=== PATIENT | male | born 1965 | race Caucasian/White ===

== ENCOUNTER 2024-04-29 01:54 | Emergency (ER) | payer OTHER ==
[~2024-04-29 01:54] MED LIST: AMLO10TA80 PO; ASPI-1160 PO; LIP40 PO; ROSU40TA MT
== END 2024-04-29 03:31 | disposition left against medical advice (07) ==
LOC: ER 01:54
DX: R53.1 Weakness (principal); Z53.21 Procedure and treatment not carried out due to patient leaving prior to being seen by health care provider

== ENCOUNTER 2024-09-11 13:02 | Emergency (ER) | payer OTHER ==
[~2024-09-11] VITALS: Ht 167.6 cm; Wt 75.0 kg
[2024-09-11 13:08] VITALS: O2SAT 99
[2024-09-11 13:11] VITALS: BP 138/75; PULSE 72; RESP 18; TEMP 36.9; O2SAT 100
[2024-09-11] MEDS ORDERED: CEPH500C2 MT (14:29)
== END 2024-09-11 15:06 | disposition home or self-care (01) ==
LOC: ER 13:02
DX: L02.412 Cutaneous abscess of left axilla (principal); E78.00 Pure hypercholesterolemia, unspecified; I10 Essential (primary) hypertension; Z79.82 Long term (current) use of aspirin; Z79.899 Other long term (current) drug therapy
CPT/HCPCS: 99283

== ENCOUNTER 2025-01-14 12:56 | Emergency (ER) | payer OTHER ==
[~2025-01-14] VITALS: Ht 167.6 cm; Wt 77.1 kg
[~2025-01-14 12:56] MED LIST changes: +CEPH500C2 MT
[2025-01-14 13:01] VITALS: O2SAT 98
[2025-01-14 13:06] VITALS: BP 164/84; PULSE 76; RESP 16; O2SAT 99
[2025-01-14 13:45] LABS: BASOPHILS % 0.6 % (0.0-2.0); EOSINOPHILS % 3.5 % (0.0-5.0); HEMATOCRIT. 38.4 % (42.0-52.0); HEMOGLOBIN. 13.2 g/dL (14.0-18.0); LYMPHOCYTES % 25.4 % (20.0-50.0); MEAN PLATELET VOLUME 8.9 fl (7.4-10.4); MONOCYTES % 7.9 % (2.0-8.0); NEUTROPHILS % 62.6 % (40.0-76.0); PLATELET 243 x1000/uL (130-400); RED BLOOD CELL COUNT 4.08 mill/uL (4.7-6.1); RED CELL DISTRIBUTION WIDTH 12.6 % (11.6-14.6)
[2025-01-14 13:56] LABS: CREATININE 1.0 mg/dL (0.6-1.3); UREA NITROGEN BLOOD 14 mg/dL (9-23)
[2025-01-14 13:57] LABS: TROPONIN I HIGH SENSITIVITY 24 ng/L (3.0-53)
== END 2025-01-14 14:45 | disposition left against medical advice (07) ==
LOC: ER 12:56
DX: R20.0 Anesthesia of skin (principal); R20.2 Paresthesia of skin; Z53.21 Procedure and treatment not carried out due to patient leaving prior to being seen by health care provider
CPT/HCPCS: 36415; 80048; 84484; 85025; 93005

== ENCOUNTER 2025-03-26 13:53 | Emergency (ER) | payer OTHER ==
[~2025-03-26] VITALS: Ht 167.6 cm; Wt 80.0 kg
[2025-03-26 13:56] VITALS: O2SAT 100
[2025-03-26 14:06] VITALS: BP 147/78; PULSE 72; RESP 16; TEMP 36.7; O2SAT 98
[2025-04-05] MEDS ORDERED: CLOP-31 MT (12:31)
[2025-04-05] MEDS ORDERED: ASPI-1406 MT (12:31)
== END 2025-03-26 16:56 | disposition left against medical advice (07) ==
LOC: ER 13:53
DX: R07.9 Chest pain, unspecified (principal); I10 Essential (primary) hypertension; Z53.21 Procedure and treatment not carried out due to patient leaving prior to being seen by health care provider
CPT/HCPCS: 96375; 99281

== ENCOUNTER 2025-04-02 19:44 | Inpatient (IN) | payer OTHER ==
[~2025-04-02] VITALS: Ht 167.6 cm; Wt 78.9 kg
[2025-04-02 19:48] VITALS: O2SAT 100
[2025-04-02 20:53] LABS: BASOPHILS % 0.8 % (0.0-2.0); EOSINOPHILS % 5.4 % (0.0-5.0); HEMATOCRIT. 38.7 % (42.0-52.0); HEMOGLOBIN. 13.4 g/dL (14.0-18.0); LYMPHOCYTES % 33.2 % (20.0-50.0); MEAN PLATELET VOLUME 8.9 fl (7.4-10.4); MONOCYTES % 8.9 % (2.0-8.0); NEUTROPHILS % 51.7 % (40.0-76.0); PLATELET 239 x1000/uL (130-400); RED BLOOD CELL COUNT 4.13 mill/uL (4.7-6.1); RED CELL DISTRIBUTION WIDTH 12.7 % (11.6-14.6)
[2025-04-02 20:59] LABS: CREATININE 0.9 mg/dL (0.6-1.3); UREA NITROGEN BLOOD 12 mg/dL (9-23)
[2025-04-02 21:01] LABS: TROPONIN I HIGH SENSITIVITY 8 ng/L (3.0-53)
[2025-04-02] MEDS: ASPIRIN 325MG EC TABLET PO ONE (22:13)
[2025-04-02] MEDS: ONDANSETRON HCL 4MG/2ML INJ IV ONE (22:15)
[2025-04-02] MEDS: MORPHINE SULFATE 4 MG/ML INJ (FOR IV/IM USE) IV ONE (22:18)
[2025-04-03 04:30] VITALS: BP 145/96; PULSE 64; RESP 15; TEMP 36.6; O2SAT 97
[2025-04-03] MEDS ORDERED: MELO-106 PO (04:37)
[2025-04-03] MEDS ORDERED: IRBE1TAB31 PO (04:37)
[2025-04-03] MEDS ORDERED: CYCL10TA21 PO (04:37)
[2025-04-03 04:55] VITALS: BP 145/96; PULSE 64; RESP 15; TEMP 36.6404
[2025-04-03 08:00] VITALS: BP 138/85; PULSE 72; RESP 22; TEMP 36.8; O2SAT 98
[2025-04-03] MEDS: METOPROLOL TARTRATE 50MG TABLET PO SCH (09:00)
[2025-04-03] MEDS: ATORVASTATIN CALCIUM 40MG TABLET PO SCH ×2 (09:00→20:44)
[2025-04-03] MEDS: ASPIRIN 81MG TABLET PO SCH (09:00)
[2025-04-03 12:00] VITALS: BP 144/78; PULSE 78; RESP 18; TEMP 36.6; O2SAT 98
[2025-04-03 13:01] LABS: BASOPHILS % 0.7 % (0.0-2.0); EOSINOPHILS % 6.2 % (0.0-5.0); HEMATOCRIT. 41.1 % (42.0-52.0); HEMOGLOBIN. 13.8 g/dL (14.0-18.0); LYMPHOCYTES % 30.9 % (20.0-50.0); MEAN PLATELET VOLUME 9.2 fl (7.4-10.4); MONOCYTES % 8.9 % (2.0-8.0); NEUTROPHILS % 53.3 % (40.0-76.0); PLATELET 233 x1000/uL (130-400); RED BLOOD CELL COUNT 4.32 mill/uL (4.7-6.1); RED CELL DISTRIBUTION WIDTH 12.8 % (11.6-14.6)
[2025-04-03 13:09] LABS: CREATININE 0.9 mg/dL (0.6-1.3); TRIGLYCERIDE 120 mg/dL (0-150); UREA NITROGEN BLOOD 9 mg/dL (9-23)
[2025-04-03 13:10] LABS: LDL CHOLESTEROL 98 mg/dL (5-100)
[2025-04-03 13:11] LABS: TROPONIN I HIGH SENSITIVITY 5 ng/L (3.0-53)
[2025-04-03 14:49] LABS: TROPONIN I HIGH SENSITIVITY 6 ng/L (3.0-53)
[2025-04-03 16:13] VITALS: BP 150/78; PULSE 64; RESP 18; TEMP 36.6; O2SAT 96
[2025-04-03] MEDS: TAMSULOSIN HCL 0.4MG SR CAPSULE PO SCH (17:48)
[2025-04-03 19:09] LABS: CLARITY URINE CLEAR (CLEAR); COLOR URINE YELLOW (YELLOW); GLUCOSE URINE NEGATIVE (NEGATIVE); KETONES URINE NEGATIVE (NEGATIVE); LEUKOCYTE ESTERASE URINE NEGATIVE (NEGATIVE); NITRITE URINE NEGATIVE (NEGATIVE); OCCULT BLOOD URINE NEGATIVE (NEGATIVE); PH URINE 7.0 (4.5-8.0); PROTEIN URINE NEGATIVE (NEGATIVE); SPECIFIC GRAVITY URINE 1.007 (1.005-1.030); UROBILINOGEN URINE 0.2 E.U./dL (0.2-1.0)
[2025-04-03 20:00] VITALS: BP 149/87; PULSE 62; RESP 15; TEMP 36.8; O2SAT 96
[2025-04-04] VITALS: BP 111/75; PULSE 56; RESP 16; TEMP 36.8; O2SAT 96
[2025-04-04 04:00] VITALS: BP 117/81; PULSE 49; RESP 14; TEMP 36.8; O2SAT 97
[2025-04-04] MEDS ORDERED: LIDOCAINE HCL 1% 20ML VIAL ONE (07:41)
[2025-04-04] MEDS ORDERED: IODIXANOL 320MG/ML 100 ML BOTTLE IV ONE ×2 (07:41→09:52)
[2025-04-04] MEDS ORDERED: HEPARIN 1000 UNITS/ML 10ML ONE ×2 (07:43→10:06)
[2025-04-04] MEDS ORDERED: VERAPAMIL HCL 2.5 MG/1 ML 2ML VIAL IV ONE (07:57)
[2025-04-04 08:00] VITALS: BP 140/81; PULSE 60; RESP 18; TEMP 36.6; O2SAT 98
[2025-04-04] MEDS ORDERED: MIDAZOLAM HCL 2 MG/2 ML VIAL ONE ×2 (08:53→09:53)
[2025-04-04] MEDS ORDERED: DIPHENHYDRAMINE 50MG/ML VIAL ONE (08:53)
[2025-04-04] MEDS ORDERED: FENTANYL CITRATE/PF 50MCG/ML 2ML VIAL ONE (08:54)
[2025-04-04] MEDS ORDERED: ATROPINE SULFATE 1MG/10ML SYR ONE (09:18)
[2025-04-04] MEDS ORDERED: ASPIRIN 81MG TABLET ONE (10:07)
[2025-04-04] MEDS ORDERED: TICAGRELOR 90 MG TABLET PO ONE (10:07)
[2025-04-04] MEDS ORDERED: ATROPINE SULFATE 1MG/10ML SYR IV PRN (11:00)
[2025-04-04] MEDS: ACETAMINOPHEN 325MG TABLET PO PRN (13:13)
[2025-04-04 16:23] VITALS: BP 125/76; PULSE 54; RESP 15; TEMP 36.7; O2SAT 97
[2025-04-04 20:00] VITALS: BP 150/82; PULSE 58; RESP 16; TEMP 36.6; O2SAT 98
[2025-04-04] MEDS: TICAGRELOR 90 MG TABLET PO SCH (21:20)
[2025-04-04 22:00] VITALS: BP 133/102; PULSE 63; RESP 15; O2SAT 96
[2025-04-05] VITALS (8 sets, daily range): BP systolic 93–148; BP diastolic 67–92; PULSE 43–71; RESP 11–16; TEMP 36.4–36.7; O2SAT 94–100
[2025-04-05 10:17] LABS: BASOPHILS % 0.5 % (0.0-2.0); EOSINOPHILS % 3.0 % (0.0-5.0); HEMATOCRIT. 43.9 % (42.0-52.0); HEMOGLOBIN. 14.7 g/dL (14.0-18.0); LYMPHOCYTES % 25.6 % (20.0-50.0); MEAN PLATELET VOLUME 9.1 fl (7.4-10.4); MONOCYTES % 8.0 % (2.0-8.0); NEUTROPHILS % 62.9 % (40.0-76.0); PLATELET 236 x1000/uL (130-400); RED BLOOD CELL COUNT 4.61 mill/uL (4.7-6.1); RED CELL DISTRIBUTION WIDTH 12.7 % (11.6-14.6)
[2025-04-05 10:36] LABS: CREATININE 0.9 mg/dL (0.6-1.3); UREA NITROGEN BLOOD 8 mg/dL (9-23)
[2025-04-05] MEDS ORDERED: CLOP-31 MT (12:31)
[2025-04-05] MEDS ORDERED: ASPI-1406 MT (12:31)
== END 2025-04-05 14:21 | disposition home or self-care (01) | DRG 175 ==
LOC: ER 19:44 → 5EST 04-03 00:28 → EDBEDREQ 04-03 00:33 → EDBEDREQTM 04-03 00:33 → EDBEDREQDT 04-03 00:33 → ENRESERV 04-03 03:11
PROVIDERS: ADMIT Internal Medicine; ATTEND Internal Medicine
PROC: 4A023N7 Measurement of Cardiac Sampling and Pressure, Left Heart, Percutaneous Approach (ICD-10-PCS; principal; 2025-04-04)
PROC: 027034Z Dilation of Coronary Artery, One Artery with Drug-eluting Intraluminal Device, Percutaneous Approach (ICD-10-PCS; 2025-04-04)
PROC: 02F03ZZ Fragmentation in Coronary Artery, One Artery, Percutaneous Approach (ICD-10-PCS; 2025-04-04)
PROC: B215YZZ Fluoroscopy of Left Heart using Other Contrast (ICD-10-PCS; 2025-04-04)
PROC: B211YZZ Fluoroscopy of Multiple Coronary Arteries using Other Contrast (ICD-10-PCS; 2025-04-04)
PROC: B240ZZ3 Ultrasonography of Single Coronary Artery, Intravascular (ICD-10-PCS; 2025-04-04)
DX: I25.110 Atherosclerotic heart disease of native coronary artery with unstable angina pectoris (principal); G90.89 Other disorders of autonomic nervous system; I10 Essential (primary) hypertension; E78.5 Hyperlipidemia, unspecified; G89.29 Other chronic pain; M25.78 Osteophyte, vertebrae; M50.323 Other cervical disc degeneration at C6-C7 level
CPT/HCPCS: 36415; 71045; 72141; 80048; 80061; 81003; 84443; 84484; 85025; 85347; 92928; 92978; 93005; 93306; 93458; 96374; 96375; 99285; A4606; C1753; C1769; C1874; C1887; C1893; J0461; J1200; J1644; J2003; J2250; J2270; J2405; J3010; J3490; Q9967; J8499